=== PATIENT | female | born 1995 | race Caucasian/White ===

== ENCOUNTER 2023-03-05 12:30 | Outpatient (OUT) | payer BC, SELFPAY ==
--- NOTE | 2023-03-05 12:36 | US_ITS ---
The [address] [address] Patient Name: ISIDRA QUINTANA MRN: [id number] date: 1995 Sex: F Assigned Patient Location: US Current Patient Location: US Accession/Order Number: [id number] Exam Date: 03/05/2023 12:30 Report Date: 03/05/2023 13:51 At the request of: HUONG MENDOZA Procedure: US OB transvaginal TRANSVAGINAL FIRST TRIMESTER OB ULTRASOUND HISTORY: ; size and dates. COMPARISON: None. FINDINGS: There is a single intrauterine with a yolk sac and fetus visualized. The crown-rump length measures 2.61 cm. There are heart tones 166 bpm. The right ovary measures 3.9 x 2.1 x 2.2 cm. The left ovary measures 2.6 x 1.4 x 3.0 cm. There is no free fluid seen within the cul-de-sac. The cervix measures 4.8 cm. IMPRESSION: Single viable intrauterine with an estimated sonographic age of 9 weeks 3 days. Electronically authenticated by: LEAH MANN Date: 03/05/2023 13:51
== END 2023-03-05 12:31 ==
LOC: US 12:32
PROVIDERS: PCP Obstetrics & Gynecology; Visit Provider Obstetrics & Gynecology
DX: Z34.91 Encounter for supervision of normal pregnancy, unspecified, first trimester (principal); Z3A.09 9 weeks gestation of pregnancy
CPT/HCPCS: 76817

== ENCOUNTER 2023-03-30 20:20 | Outpatient (REF) | payer BC, SELFPAY ==
[2023-04-02 16:09] LABS: Age Gdln ACOG Testing Note (.); IGP, rfx Aptima HPV ASCU Note (.)
== END 2023-03-30 20:21 | disposition home or self-care (01) ==
LOC: LAB 20:20
PROVIDERS: PCP Obstetrics & Gynecology; Visit Provider Obstetrics & Gynecology
DX: Z01.419 Encounter for gynecological examination (general) (routine) without abnormal findings (principal)
CPT/HCPCS: G0145

== ENCOUNTER 2023-04-01 16:03 | Outpatient (OUT) | payer BC, SELFPAY ==
[2023-04-01 16:37] LABS: Basophils Percent Auto 0.3 % (0.2-2.0); Eosinophils Absolute Auto 0.1 10^3/uL (0.0-0.7); Eosinophils Percent Auto 0.5 % (0.9-7.0); Hematocrit 36.8 % (36.0-48.0); Hemoglobin 12.6 g/dL (12.0-16.0); Immature Granulocytes Abs Auto 0.04 10^3/uL (0.00-0.03); Immature Granulocytes Pct Auto 0.3 % (0.0-0.5); Lymphocytes Absolute Auto 2.4 10^3/uL (1.2-3.8); Lymphocytes Percent Auto 20.4 % (20.5-60.0); Mean Corpuscular HGB Conc 34.2 g/dL (29.9-35.2); Mean Corpuscular Hemoglobin 30.1 pg (26.7-34.0); Mean Corpuscular Volume 87.8 fL (81.0-99.0); Mean Platelet Volume 10.6 fL (9.5-13.5); Monocytes Absolute Auto 1.1 10^3/uL (0.3-0.8); Monocytes Percent Auto 9.1 % (1.7-12.0); Neutrophils Absolute Auto 8.2 10^3/uL (1.4-6.5); Neutrophils Percent Auto 69.4 % (43.0-75.0); Platelet Count 210 10^3/uL (150-450); Red Blood Count 4.19 10^6/uL (4.20-5.40); Red Cell Distribution Width 12.4 % (11.0-15.0); White Blood Count 11.9 10^3/uL (4.0-11.0)
[2023-04-01 17:04] LABS: Estimated Average Glucose 105 mg/dL; Glycohemoglobin A1C 5.3 % (4.5-6.2)
[2023-04-01 17:18] LABS: Thyroid Stimulating Hormone 1.853 uIU/mL (0.358-3.740)
[2023-04-03 05:07] LABS: HCV Ab Non Reactive (Non Reactive); HIV Ab/p24 Ag Screen Non Reactive (Non Reactive); Rubella Antibodies, IgG 1.22 index (Immune >0.99)
[2023-04-03 06:09] LABS: HBsAg Screen Negative (Negative)
[2023-04-03 11:09] LABS: Rapid Plasma Reagin, Quant Non Reactive (NonRea<1:1)
== END 2023-04-01 16:04 | disposition home or self-care (01) ==
PROVIDERS: PCP Obstetrics & Gynecology; Visit Provider Obstetrics & Gynecology
DX: N91.2 Amenorrhea, unspecified (principal)
CPT/HCPCS: 36415; 83036; 84443; 85025; 86592; 86762; 86803; 86850; 86900; 86901; 87086; 87340; 87389

== ENCOUNTER 2023-05-21 16:50 | Outpatient (OUT) | payer BC, SELFPAY ==
--- NOTE | 2023-05-21 16:54 | US_ITS ---
[address] [address] Patient Name: ISIDRA QUINTANA MRN: [id number] date: 1995 Sex: F Assigned Patient Location: US Current Patient Location: Accession/Order Number: [id number] Exam Date: 05/21/2023 17:05 Report Date: 05/22/2023 07:19 At the request of: MELY PAYTON Procedure: US OB anatomy EXAMINATION: US OB anatomy, US OB cervical length HISTORY: Second trimester Z34.92 COMPARISON: No relevant comparison available. TECHNIQUE: Transabdominal sonographic examination was performed for obstetrical and evaluation. FINDINGS: Number: 1 Heart Rate: 148.4 bpm H.B. /min Amniotic Fluid Volume: Subjectively normal Placental Location: Posterior, grade 0. Placental edge 2.4 cm from the internal os position: Cephalic presentation, variable lie Cervix Length: 5.7 cm, closed Normal anatomy: Nose, lips, orbits, four-chamber heart, diaphragm, stomach, kidneys, abdominal cord insertion, bladder, umbilical cord arteries, three-vessel cord, spine, extremities Suboptimal visualization: Lateral ventricles, cerebellum, posterior fossa, RVOT, LVOT BIOMETRY: BPD: 4.9 cm 21 weeks 0 days , 81% HC: 18.3 cm 20 weeks 5 days, 69% AC: 15.2 cm 20 weeks 3 days, 54% FL: 3.1 cm 19 weeks 5 days, 27% EFW:338.2 grams; 12 ounces, 48% FL/AC: 20.6 FL/BPD: 63.4 HC/AC: 1.2 GESTATIONAL AGE: Age by EDC: 20 weeks 1 days GAMAL by EDC: 10/07/2023 Age by current US: 20 weeks 3 days GAMAL by current US: 10/05/2023 US/US OB anatomy IMPRESSION: Suboptimal visualization as detailed above Low lying placenta Closed cervix measuring 5.7 cm in length *Reference: [facility] Practice Guideline for the performance of Obstetric Ultrasound Examinations, July 05, 2007. Electronically authenticated by: JONATHAN GEIGER Date: 05/22/2023 07:19
--- NOTE | 2023-05-21 16:54 | US_ITS ---
[address] [address] Patient Name: ISIDRA QUINTANA MRN: [id number] date: 1995 Sex: F Assigned Patient Location: US Current Patient Location: Accession/Order Number: [id number] Exam Date: 05/21/2023 17:05 Report Date: 05/22/2023 07:19 At the request of: MELY PAYTON Procedure: US OB cervical length EXAMINATION: US OB anatomy, US OB cervical length HISTORY: Second trimester Z34.92 COMPARISON: No relevant comparison available. TECHNIQUE: Transabdominal sonographic examination was performed for obstetrical and evaluation. FINDINGS: Number: 1 Heart Rate: 148.4 bpm H.B. /min Amniotic Fluid Volume: Subjectively normal Placental Location: Posterior, grade 0. Placental edge 2.4 cm from the internal os position: Cephalic presentation, variable lie Cervix Length: 5.7 cm, closed Normal anatomy: Nose, lips, orbits, four-chamber heart, diaphragm, stomach, kidneys, abdominal cord insertion, bladder, umbilical cord arteries, three-vessel cord, spine, extremities Suboptimal visualization: Lateral ventricles, cerebellum, posterior fossa, RVOT, LVOT BIOMETRY: BPD: 4.9 cm 21 weeks 0 days , 81% HC: 18.3 cm 20 weeks 5 days, 69% AC: 15.2 cm 20 weeks 3 days, 54% FL: 3.1 cm 19 weeks 5 days, 27% EFW:338.2 grams; 12 ounces, 48% FL/AC: 20.6 FL/BPD: 63.4 HC/AC: 1.2 GESTATIONAL AGE: Age by EDC: 20 weeks 1 days GAMAL by EDC: 10/07/2023 Age by current US: 20 weeks 3 days GAMAL by current US: 10/05/2023 US/US OB cervical length IMPRESSION: Suboptimal visualization as detailed above Low lying placenta Closed cervix measuring 5.7 cm in length *Reference: [facility] Practice Guideline for the performance of Obstetric Ultrasound Examinations, July 05, 2007. Electronically authenticated by: JONATHAN GEIGER Date: 05/22/2023 07:19
== END 2023-05-21 16:51 | disposition home or self-care (01) ==
LOC: US 16:50
PROVIDERS: PCP Obstetrics & Gynecology; Visit Provider Physician Assistant
DX: O44.42 Low lying placenta NOS or without hemorrhage, second trimester (principal); Z3A.20 20 weeks gestation of pregnancy
CPT/HCPCS: 76805; 76817

== ENCOUNTER 2023-07-04 09:15 | Outpatient (OUT) | payer BC, MEDICAID, SELFPAY ==
--- NOTE | 2023-07-04 | US_ITS ---
[address] [address] Patient Name: ISIDRA QUINTANA MRN: [id number] date: 1995 Sex: F Assigned Patient Location: US Current Patient Location: Accession/Order Number: [id number] Exam Date: 07/04/2023 10:08 Report Date: 07/06/2023 08:52 At the request of: MELY PAYTON Procedure: US OB cervical length EXAMINATION: US OB incomplete anatomy, US OB cervical length HISTORY: ENCOUNTER FOR FOLLOW UP OF ANATOMY Z36.2 COMPARISON: No relevant comparison available. FINDINGS: Heart Rate: 148.4 bpm Amniotic Fluid Volume: Subjectively normal Number: 1.0 Position: Cephalic presentation, longitudinal lie Placenta: Posterior. Placental edge 4.3 cm from the internal os. Grade 0 Cervix: Closed, 4.6 cm Normally observed anatomy: Cerebellum, posterior fossa, RVOT, LVOT, lateral ventricles GESTATIONAL AGE: Age by EDC: 26 weeks 3 days GAMAL by EDC: 10/07/2023 US/US OB cervical length IMPRESSION: Closed cervix measuring 4.6 cm in length Observed anatomy is normal Electronically authenticated by: JONATHAN GEIGER Date: 07/06/2023 08:52
--- NOTE | 2023-07-04 | US_ITS ---
[address] [address] Patient Name: ISIDRA QUINTANA MRN: [id number] date: 1995 Sex: F Assigned Patient Location: US Current Patient Location: Accession/Order Number: [id number] Exam Date: 07/04/2023 10:08 Report Date: 07/06/2023 08:52 At the request of: MELY PAYTON Procedure: US OB incomplete anatomy EXAMINATION: US OB incomplete anatomy, US OB cervical length HISTORY: ENCOUNTER FOR FOLLOW UP OF ANATOMY Z36.2 COMPARISON: No relevant comparison available. FINDINGS: Heart Rate: 148.4 bpm Amniotic Fluid Volume: Subjectively normal Number: 1.0 Position: Cephalic presentation, longitudinal lie Placenta: Posterior. Placental edge 4.3 cm from the internal os. Grade 0 Cervix: Closed, 4.6 cm Normally observed anatomy: Cerebellum, posterior fossa, RVOT, LVOT, lateral ventricles GESTATIONAL AGE: Age by EDC: 26 weeks 3 days GAMAL by EDC: 10/07/2023 US/US OB incomplete anatomy IMPRESSION: Closed cervix measuring 4.6 cm in length Observed anatomy is normal Electronically authenticated by: JONATHAN GEIGER Date: 07/06/2023 08:52
[2023-07-04 10:13] LABS: Glucose 1 Hour 128 mg/dL
[2023-07-04 10:44] LABS: Basophils Absolute Auto 0.1 10^3/uL (0.0-0.1); Basophils Percent Auto 0.5 % (0.2-2.0); Eosinophils Absolute Auto 0.1 10^3/uL (0.0-0.7); Eosinophils Percent Auto 0.6 % (0.9-7.0); Hematocrit 35.8 % (36.0-48.0); Hemoglobin 11.8 g/dL (12.0-16.0); Immature Granulocytes Abs Auto 0.09 10^3/uL (0.00-0.03); Immature Granulocytes Pct Auto 0.7 % (0.0-0.5); Lymphocytes Absolute Auto 2.2 10^3/uL (1.2-3.8); Lymphocytes Percent Auto 17.6 % (20.5-60.0); Mean Corpuscular Hemoglobin 30.5 pg (26.7-34.0); Mean Corpuscular Volume 92.5 fL (81.0-99.0); Mean Platelet Volume 10.6 fL (9.5-13.5); Monocytes Percent Auto 8.1 % (1.7-12.0); Neutrophils Absolute Auto 8.9 10^3/uL (1.4-6.5); Neutrophils Percent Auto 72.5 % (43.0-75.0); Platelet Count 213 10^3/uL (150-450); Red Blood Count 3.87 10^6/uL (4.20-5.40); Red Cell Distribution Width 12.8 % (11.0-15.0); White Blood Count 12.3 10^3/uL (4.0-11.0)
== END 2023-07-04 09:16 | disposition home or self-care (01) ==
LOC: US 09:23
PROVIDERS: Visit Provider Physician Assistant
DX: Z36.2 Encounter for other antenatal screening follow-up (principal); Z34.92 Encounter for supervision of normal pregnancy, unspecified, second trimester; Z3A.26 26 weeks gestation of pregnancy
CPT/HCPCS: 36415; 76815; 76817; 82950; 85025

== ENCOUNTER 2023-09-10 19:26 | Outpatient (REF) | payer BC, SELFPAY | END 2023-09-10 19:27 | disposition home or self-care (01) | LOC: LAB 19:26 | PROVIDERS: Visit Provider Obstetrics & Gynecology | DX: Z34.93 Encounter for supervision of normal pregnancy, unspecified, third trimester (principal) | CPT/HCPCS: 87081 ==

== ENCOUNTER 2023-09-29 14:21 | Inpatient (IN) | payer BC, MEDICAID, SELFPAY ==
[2023-09-29] VITALS (33 sets, daily range): BP systolic 86–125; BP diastolic 54–91; PULSE 81–100; RESP 10–21; TEMP 36.2–36.8; O2SAT 97–100
[2023-09-29 15:33] LABS: Hematocrit 36.6 % (36.0-48.0); Hemoglobin 11.8 g/dL (12.0-16.0); Mean Corpuscular HGB Conc 32.2 g/dL (29.9-35.2); Mean Corpuscular Hemoglobin 28.2 pg (26.7-34.0); Mean Corpuscular Volume 87.4 fL (81.0-99.0); Mean Platelet Volume 10.9 fL (9.5-13.5); Platelet Count 222 10^3/uL (150-450); Red Blood Count 4.19 10^6/uL (4.20-5.40); Red Cell Distribution Width 14.2 % (11.0-15.0); White Blood Count 16.9 10^3/uL (4.0-11.0)
[2023-09-29 15:36] LABS: Bilirubin Urine NEGATIVE (NEGATIVE); Blood Urine NEGATIVE (NEGATIVE); Clarity Urine CLEAR (CLEAR); Color Urine LT. YELLOW (YELLOW); Glucose Urine UA NEGATIVE (NEGATIVE); Ketones Urine NEGATIVE (NEGATIVE); Leukocyte Esterase Urine NEGATIVE (NEGATIVE); Nitrite Urine NEGATIVE (NEGATIVE); Protein Urine NEGATIVE (NEG/TRACE); Specific Gravity Urine 1.015 (1.005-1.025); Urobilinogen Urine 0.2 EU/dL (0.2-1.0)
[2023-09-29] MEDS: 0.9 % SODIUM CHLORIDE 1,000 ML 1000 ML IV ×2 (15:43→16:44)
[2023-09-29 15:45] LABS: Amphetamine Screen Urine NEGATIVE (NEGATIVE); Bacteria Urine NONE SEEN #/HPF (NONE SEEN); Barbiturates Screen Urine NEGATIVE (NEGATIVE); Benzodiazepines Screen Urine NEGATIVE (NEGATIVE); Buprenorphine Screen Urine NEGATIVE (NEGATIVE); Cannabinoid Screen Urine NEGATIVE (NEGATIVE); Cocaine Screen Urine NEGATIVE (NEGATIVE); Crystals Seen? None Seen #/HPF (None Seen); Methadone Screen Urine NEGATIVE (NEGATIVE); Methamphetamines Screen Urine NEGATIVE (NEGATIVE); Mucus Urine SMALL (NONE SEEN); Opiate Screen Urine NEGATIVE (NEGATIVE); Oxycodone Screen Urine NEGATIVE (NEGATIVE); Phencyclidine Screen Urine NEGATIVE (NEGATIVE); RBC Urine NONE SEEN #/HPF (0-2); Squamous Epithelial Cell Urine FEW #/LPF (NONE/RARE); Tricyclic Antidepressant Urine NEGATIVE (NEGATIVE); WBC Urine NONE SEEN #/HPF (NONE SEEN)
[2023-09-29 15:46] LABS: Cast Seen? NONE SEEN #/LPF (NONE SEEN)
[2023-09-29 15:53] LABS: Anisocytosis 1+; Segmented Neut Absolute Manual 10.98 10^3/uL (1.4-6.5)
[2023-09-29 15:54] LABS: Eosinophils Absolute Manual 0.33 10^3/uL (0.00-0.70); Lymphocytes Absolute Manual 3.04 10^3/uL (1.20-3.80); Monocytes Absolute Manual 2.53 10^3/uL (0.30-0.80)
[2023-09-29] MEDS: FAMOTIDINE/PF 20 MG/2 ML VIAL IV (16:08)
[2023-09-29] MEDS: CITRIC ACID/SODIUM CITRATE 30 ML SOLUTION ORACIT SHOHL'S SOLN PO (16:08)
[2023-09-29] MEDS: CEFAZOLIN SODIUM/DEXTROSE,ISO 2 GM/50 ML PIGGYBACK IV ×2 (16:22→22:28)
--- NOTE | 2023-09-29 16:56 | P.ON_ITS ---
Brief Operative Note Date of procedure: 09/29/23 Pre-op diagnosis: iup at 38 6/7wks, breech presentation, active labor, srom Post-op diagnosis: same as pre-op Procedure: NAME OF PROCEDURE: [ section ] PROCEDURE: Patient was taken back to the Operating Room where she was given a spinal anesthesia with Duramorph without difficulty. She was prepped and draped in the normal sterile fashion. A Pfannenstiel skin incision was then made 2 cm above the symphysis pubis and carried down to underlying rectus fascia using a Bovie. The fascia was incised in the midline and extended laterally using Kenney scissors. Two Jerilyn clamps were placed on the superior aspect of the fascia and dissected off the underlying rectus muscles. The same was performed on the inferior aspect as well. The muscles were then in the midline. P eritoneum was identified and entered bluntly. The peritoneum was then extended superiorly and inferiorly with good visualization of the bladder. The bladder blade was inserted. A low transverse incision was made on the patient's uterus and extended laterally digitally. The infant was then delivered atraumatically after the bladder blade was removed in the breech position. The cord was clamped and cut. Cord blood was obtained. The infant was handed off to awaiting team. The patient's placenta was spontaneously delivered. The uterus was then exteriorized. The uterus was cleared of all clots and debris. The bladder blade was reinserted. The patient's uterine incision was closed using #0 Vicryl in a running lock fashion. Excellent hemostasis was assured. The uterus was then returned to the patient's abdomen. The patient's abdomen was copiously irrigated using warm saline. Peritoneal gutters were cleared of all clots and debris. Again excellent hemostasis was assured. The patient's peritoneum was closed using 3-0 Vicryl in a running fashion. The patient's fascia was closed using #0 Vicryl in a running fashion. The patient's skin was closed using 4-0 Vicryl subcuticularly. The patient tolerated the procedure well. Sponge, lap, and needle counts were correct x2. The patient was taken to the Recovery Room in stable condition. Anesthesia: spinal Surgeon: Yair Vega Manufacturing Weaver: Lulu Nelson Estimated blood loss (mL): 575 Pathology: other (placenta) Condition: stable Disposition: PACU Urinary Catheter Management Urinary Catheter Management Urethral: Cath placed during this visit: no
--- NOTE | 2023-09-29 16:58 | PM.OBPRCCS ---
Procedure Pre-op/Post-op diagnoses: Pre-Op/Post-Op Diagnoses Operation Date: 09/29/23 16:00 <No data on this case meets the specified criteria> Procedure: Procedures Operation Date: 09/29/23 16:00 Actual Procedure Side Surgeon p Primary Not Applicable Yair Vega DO Cotton Farmer: Lulu Nelson Estimated blood loss (mL): 575 Disposition: PACU Anesthesia type: Spinal
[2023-09-29] MEDS: LACTATED RINGER'S SOLUTION 1,000 ML 50 ML IV (17:05)
[2023-09-29] MEDS: OXYTOCIN/0.9 % SODIUM CHLORIDE 20 UNITS/1,000 ML PLAST..BAG 200 UNIT IV (18:23)
[2023-09-29] MEDS: KETOROLAC TROMETHAMINE 30 MG/ML VIAL IVP (22:33)
[2023-09-29] MEDS: ONDANSETRON PF 4 MG/2 ML VIAL IV (22:48)
[2023-09-30 00:06] VITALS: BP 113/73
[2023-09-30] MEDS: KETOROLAC TROMETHAMINE 30 MG/ML VIAL IVP ×2 (04:51→11:42)
[2023-09-30 05:01] VITALS: BP 117/66; TEMP 36.4
[2023-09-30 06:33] LABS: Basophils Absolute Auto 0.1 10^3/uL (0.0-0.1); Basophils Percent Auto 0.3 % (0.2-2.0); Hematocrit 28.9 % (36.0-48.0); Hemoglobin 9.1 g/dL (12.0-16.0); Immature Granulocytes Abs Auto 0.16 10^3/uL (0.00-0.03); Immature Granulocytes Pct Auto 0.7 % (0.0-0.5); Lymphocytes Absolute Auto 2.5 10^3/uL (1.2-3.8); Lymphocytes Percent Auto 10.9 % (20.5-60.0); Mean Corpuscular HGB Conc 31.5 g/dL (29.9-35.2); Mean Corpuscular Hemoglobin 28.1 pg (26.7-34.0); Mean Corpuscular Volume 89.2 fL (81.0-99.0); Neutrophils Absolute Auto 17.4 10^3/uL (1.4-6.5); Neutrophils Percent Auto 75.1 % (43.0-75.0); Platelet Count 176 10^3/uL (150-450); Red Blood Count 3.24 10^6/uL (4.20-5.40); Red Cell Distribution Width 14.2 % (11.0-15.0); White Blood Count 23.2 10^3/uL (4.0-11.0)
--- NOTE | 2023-09-30 07:41 | W.PC.ACHO ---
Registration Status: ADM IN Primary Language: Belizean Preferred Language: Belizean Active Medications Generic Name Dose Route Start Last Admin Trade Name Freq PRN Reason Stop Dose Admin Al Hydroxide/Mg Hydroxide 2,400 mg 09/29/23 16:58 Magnesium Hydroxide 2,400 Mg/10 Ml Oral.Susp PO Q6H PRN Dyspepsia Diphenhydramine HCl 25 mg 09/29/23 16:58 Diphenhydramine Hcl 50 Mg/Ml (1ml) Vial IV 09/30/23 17:00 Q6H PRN Itching Diphtheria/Pertussis/Tetanus Vacc 0.5 ml 10/01/23 09:00 Adacel Diph,Pertuss(Acell),Tet Vac/Pf 0.5 Ml Adult Syringe IM 10/01/23 09:01 .ONCE ONE Docusate Sodium 100 mg 09/30/23 09:00 Docusate Sodium 100 Mg Capsule PO BID STEPHANY Sodium Chloride 1,000 mls @ 125 mls/hr 09/29/23 18:00 Sodium Chloride 0.9% 1,000 Ml IV .Q8H STEPHANY Ibuprofen 800 mg 09/29/23 16:58 Ibuprofen 400 Mg Tablet PO Q8H PRN Pain Ketorolac Tromethamine 30 mg 09/29/23 16:58 09/30/23 04:51 Ketorolac Tromethamine 30 Mg/Ml Vial IVP 10/01/23 16:59 30 mg Q6H PRN Administration Pain Measles/Mumps/Rubella Vaccine Live 0.5 ml 10/01/23 09:00 Measles,Mumps,Rubella Vacc/Pf 0.5 Ml Vial SQ 10/01/23 09:01 .ONCE ONE Ondansetron HCl 4 mg 09/29/23 16:58 09/29/23 22:48 Ondansetron Pf 4 Mg/2 Ml Vial IV 4 mg Q6H PRN Administration Nausea And Vomiting Ondansetron HCl 4 mg 09/29/23 16:58 Ondansetron 4 Mg Rapdis Tablet PO Q6H PRN Nausea And Vomiting Oxycodone/Acetaminophen 1 tab 09/29/23 16:58 Oxycodone Hcl/Acetaminophen 5mg/325mg PO Q4H PRN Pain Scale 4-6 Oxycodone/Acetaminophen 2 tab 09/29/23 16:58 Oxycodone Hcl/Acetaminophen 5mg/325mg PO Q4H PRN Pain Scale 7-10 Senna 17.2 mg 09/29/23 20:00 Sennosides 8.6 Mg Tablet PO QHS PRN Constipation Simethicone 80 mg 09/29/23 16:58 Simethicone 80 Mg Tab.Chew PO QID PRN Abdominal Distention Diet Category Date Time Status Regular Consistency Diet Diet 09/29/23 16:59 Active IV Insertion/Site Date of IV Line Insertion [ 09/29/23 Long PIV (>1.75 in) 20g left Wrist] IV Insertion Time [Long PIV (> 15:44 1.75 in) 20g left Wrist] Respiratory Lung sounds [Bilateral clear Throughout] Lung sounds [Bilateral clear Throughout] Lung sounds [Bilateral clear Throughout] Pulse Oximetry 97 Pulse Oximetry 97 Pulse Oximetry 97 Pulse Oximetry 97 Pulse Oximetry 99 Pulse Oximetry 98 Pulse Oximetry 97 Pulse Oximetry 99 Pulse Oximetry 98 Pulse Oximetry 98 Pulse Oximetry 100 Pulse Oximetry 100 Pulse Oximetry 99 Pulse Oximetry 100 Pulse Oximetry 100 Pulse Oximetry 100 Pulse Oximetry 100 Pulse Oximetry 100 Pulse Oximetry 100 Pulse Oximetry 100 Pulse Oximetry 100 Pulse Oximetry 100 Pulse Oximetry 100 Pulse Oximetry 100 Oxygen Delivery Method Room Air Oxygen Delivery Method Room Air Oxygen Delivery Method Room Air Oxygen Delivery Method Room Air Oxygen Delivery Method Room Air Oxygen Delivery Method Room Air Oxygen Delivery Method Room Air Oxygen Delivery Method Room Air Oxygen Delivery Method Room Air Cardiology Heart Sounds Regular Heart Sounds Regular Heart Sounds Regular Heart Sounds Regular Catheter Urinary Catheter Date of 09/29/23 Insertion [Urethral] Urinary Catheter Time of 15:30 Insertion [Urethral]
[2023-09-30 08:07] VITALS: PULSE 72
[2023-09-30 09:05] VITALS: BP 100/52; PULSE 72; TEMP 36.8
--- NOTE | 2023-09-30 09:06 | PM.OBPN ---
OB - PN: Subj Subjective Patient comments: no complaints and pain well controlled [place] status: doing well Exam Constitutional Vital Signs, click to edit/add: Last Vital Signs Temp 97.6 F 09/30/23 05:01 Pulse 82 09/29/23 18:20 Resp 13 09/29/23 18:45 BP 117/66 09/30/23 05:01 Pulse Ox 97 09/29/23 18:45 O2 Del Method Room Air 09/30/23 00:03 Documenting provider has reviewed patient's vital signs: yes Common normals: no apparent distress Respiratory Common normals: normal respiratory effort and clear to auscultation bilaterally Cardio Common normals: regular rate and regular rhythm GI Common normals: Normal to inspection, nondistended, normoactive bowel sounds present Extremity Common normals: no clubbing, cyanosis or edema and no calf tenderness Results Labs Labs: Short CBC 09/29/23 09/30/23 Range/Units 15:18 06:24 WBC 16.9 H 23.2 H (4.0-11.0) 10^3/uL Hgb 11.8 L 9.1 L (12.0-16.0) g/dL Hct 36.6 28.9 L (36.0-48.0) % Plt Count 222 176 (150-450) 10^3/uL Urine 09/29/23 Range/Units 15:18 Urine Color Lt. yellow (YELLOW) Urine Clarity Clear (CLEAR) Urine pH 6.0 (5.0-9.0) Ur Specific [place] 1.015 (1.005-1.025) Urine Protein Negative (NEG/TRACE) mg/dL Urine Glucose (UA) Negative (NEGATIVE) mg/dL Urinary Catheter Management Urinary Catheter Management Urethral: Cath placed during this visit: yes Urethral indwelling: No Insertion date: 09/29/23 Insertion time: 15:30 OB - PN: A/P Plan - day: 1 Plan: routine postop care Time Spent with Patient Time: Total time spent is greater than 50% in coordination of care (as documented) at patient's floor/unit and/or counseling patient: Total time spent with greater than 50% in coordination of care (as documented) at patient's floor/unit and/or counseling patient: less than 15 minutes
[2023-09-30] MEDS: DOCUSATE SODIUM 100 MG CAPSULE PO (11:44)
--- NOTE | 2023-09-30 14:54 | PC.NURSE ---
1300 assisted up to bathroom, Liang catheter removed.
--- NOTE | 2023-09-30 15:48 | PC.NURSE ---
LC into room as infant signals to eat. Discussed possible tongue tie for and impact on /latching. Also discussed simple reflexes that are important for feeding including backwards expression of labyrinthian reflex. Shown how to hold infant to stimulate reflex. Tongue tie noted, brief digital assessment shows infant unable to extend tongue to lip, minimal ability to move tongue laterally. Infant had tight bite/clamp of jaw when stimulated to suck. Mother shown simple exercises to assist in jaw relaxation and tongue extension. Shown to use cheek sweeps, mandibular massage, gum massage for lateralization and walk the chin. Baby positioned well by mom, minimal assistance needed to latch deep and asymmetrical. Wide gape noted with audible swallows noted. Baby successfully maintains latch for feed. All reviewed info with mom and voices understanding.
[2023-09-30 17:01] VITALS: RESP 18
[2023-09-30 17:17] VITALS: BP 110/65; TEMP 36.7
[2023-09-30] MEDS: IBUPROFEN 400 MG TABLET 800 MG PO (17:37)
--- NOTE | 2023-09-30 19:08 | PC.NURSE ---
1830 Patient up to shower, dressing removed . Abdominal incision KNOWLEDGE MANAGER with Steri Strips intact.
[2023-10-01] VITALS (10 sets, daily range): BP systolic 88–142; BP diastolic 48–75; PULSE 99–109; RESP 16–20; TEMP 37–37.6
[2023-10-01] MEDS: IBUPROFEN 400 MG TABLET 800 MG PO ×3 (01:09→19:49)
[2023-10-01] MEDS: ACETAMINOPHEN 500 MG TABLET 1000 MG PO ×2 (04:37→14:41)
[2023-10-01] MEDS: DOCUSATE SODIUM 100 MG CAPSULE PO (09:30)
--- NOTE | 2023-10-01 12:13 | PM.OBPN ---
OB - PN: Subj Subjective Patient comments: other status: doing well [place] feeding status: exclusively Narrative: PATIENT DOES NOT FEEL WELL. SHE HAS A TEMPERATURE AND THE FOB AND DAUGHTER HAVE HAD COLDS. SHE WAS TEARFUL BECAUSE SHE DOES NOT FEEL WELL. ALSO, SHE IS TRYING TO BREAST FEED WHICH IS REQUIRING SUPPORT FROM THE BIODIESEL PROCESSING TECHNICIAN WHICH IS MAKING HER TEARFUL. Exam Narrative Exam Narrative: PATIENT NOT FEELING WELL. HAS A LOW GRADE TEMP. FOB AND DAUGHTER HAVE BEEN SICK. HISTORY OF ANXIETY AND DEPRESSION. PRESENTLY TEARFUL BECAUSE EXHAUSTED AND NOT FEELING WELL Constitutional Vital Signs, click to edit/add: Last Vital Signs Temp 99.3 F 10/01/23 04:37 Pulse 72 09/30/23 09:05 Resp 16 10/01/23 00:51 BP 96/48 L 10/01/23 03:25 Pulse Ox 97 09/29/23 18:45 O2 Del Method Room Air 09/30/23 00:03 Common normals: oriented x3 and alert General appearance: cooperative Orientation/consciousness: Yes awake, Yes oriented to person, Yes oriented to place and Yes oriented to time Other: EMOTIONALLY OVERWHELMED THOUGH BONDING WELL WITH BABY. HAS HISTORY OF ANXIETY AND DEPRESSION. WILL BE STARTING ZOLOFT 50 MG QHS HENMT Common normals: normocephalic and head/scalp atraumatic Eye Pupil: PERRL and accommodation reflex normal Neck & C-Spine Common normals: full ROM Chest Common normals: inspection of chest normal Respiratory Common normals: normal respiratory effort Cardio Common normals: regular rate and regular rhythm GI Common normals: Normal to inspection, nondistended, normoactive bowel sounds present and non-tender Common normals: no CVA tenderness Extremity Common normals: full ROM and no calf tenderness Neuro Common normals: oriented x3, CN's II-XII intact bilaterally, no focal motor deficits and no sensory deficits noted Sensorium/orientation: awake, alert, oriented to person, oriented to place and oriented to time Psych Common normals: mental status grossly normal, thought process normal, cooperative and affect normal Appearance: grossly normal Urinary Catheter Management Urinary Catheter Management Urethral: Cath placed during this visit: yes Urethral indwelling: No Insertion date: 09/29/23 Insertion time: 15:30 OB - PN: A/P Assessment and Plan (1) Fever: Assessment and Plan: FOB AND CHILD HAVE BEEN SICK. PATIENT HAS ELEVATED WBC AND LOW GRADE FEVER. NO NAUSEA OR VOMITING. NO HEADACHE. WILL DRAW BLOOD CULTURES AND THEN START UNASYN 3 GRAM IV Q 6 HOURS AND RECHECK WBC TOMORROW AM Qualifiers: Fever type: fever of unknown origin following delivery Qualified Code(s): O86.4 - Pyrexia of unknown origin following delivery (2) Anxiety: Assessment and Plan: HAS HISTORY OF ANXIETY AND DEPRESSION. DOESN'T FEEL WELL WITH FEVER AND FOB STRUGGLING WITH WORK TO GET PATERNITY LEAVE. PRESENTLY IS TEARFUL HOWEVER BONDING WELL WITH BABY AND NO THOUGHTS OF HURTING SELF OR BABY. WILL START ZOLOFT 50 MG QHS AND INCREASE AT TWO WEEKS IF NEEDED. (3) Status post : Plan INCISION DRY AND INTACT, ROUTINE POST OP POST CARE Time Spent with Patient Time: Total time spent is greater than 50% in coordination of care (as documented) at patient's floor/unit and/or counseling patient: Total time spent with greater than 50% in coordination of care (as documented) at patient's floor/unit and/or counseling patient: less than 15 minutes
[2023-10-01] MEDS: AMPICILLIN SODIUM/SULBACTAM NA 3 GM in 0.9 % SODIUM CHLORIDE 100 ML IV ×2 (14:00→19:48)
--- NOTE | 2023-10-01 14:05 | PC.NURSE ---
1150 AM 09/21/2023. LC into room to check on feeding status and how latching has been due to tongue tie in baby and pinching during feeds. Mom states better than yesterday still reprots pain with feeds and half the time my nipple is flat on one side when he comes off Discussed tongue tie and shallow latch. Pt had previously asked about discharge but then states I don't feel good today I want to go home to my bed, I have a temperature, I am coughing and just don't feel good LC offers cool cloth to face, and feeding options could wait. Floor nurses updated on pt complaints at this time. Dr Browning on her way in. Pt states would like to get to chair to feed baby. Discussed pro's and con's of use of nipple shield for tongue tie and sore nipples Pt would like to try. Hand out for use reviewed, assisted to place with pt verbalizing understanding of proper placement and baby to breast. NB does not suck well, stops altogether. Shield removed and to breast with deep latch and audible swallows. Nipple rounded when off, nursed for 19 minutes. Mom encouraged with feeding. Later states I would like to give him a bit of formula because I feel so awful Supported and validated. Pt to offer small amount of formula via syringe as needs. No further concerns voiced.
--- NOTE | 2023-10-01 16:03 | PC.NURSE ---
1325: LAB AT BEDSIDE FOR BLOOD CULTURES X 2. 1400: IV STARTED IN LEFT AC WITH # 20 ANGIOCATH FOR IVPB UNASYN.
--- NOTE | 2023-10-01 16:05 | PC.NURSE ---
1430: TYLENOL XS GIVEN 1000 MG PO. 1445: C/O CHILLS- WARM BLANKET GIVEN- SKIN WARM TO TOUCH- TEMP TAKEN. 1500: SLEEPING AND NO SHAKING NOTED. 1530: REMAINS ASLEEP WITH EASY RESPIRATIONS.
[2023-10-01] MEDS: SERTRALINE HCL 50 MG TABLET PO (22:21)
[2023-10-02 00:20] VITALS: BP 117/66
[2023-10-02 00:21] VITALS: RESP 16; TEMP 36.9
[2023-10-02] MEDS: AMPICILLIN SODIUM/SULBACTAM NA 3 GM in 0.9 % SODIUM CHLORIDE 100 ML IV ×2 (02:40→09:46)
[2023-10-02] MEDS: IBUPROFEN 400 MG TABLET 800 MG PO ×2 (02:57→18:36)
[2023-10-02 03:00] VITALS: BP 107/59; TEMP 37.3
[2023-10-02 06:30] LABS: Hematocrit 30.3 % (36.0-48.0); Hemoglobin 9.6 g/dL (12.0-16.0); Mean Corpuscular HGB Conc 31.7 g/dL (29.9-35.2); Mean Corpuscular Hemoglobin 28.1 pg (26.7-34.0); Mean Corpuscular Volume 88.6 fL (81.0-99.0); Mean Platelet Volume 10.5 fL (9.5-13.5); Platelet Count 174 10^3/uL (150-450); Red Blood Count 3.42 10^6/uL (4.20-5.40); Red Cell Distribution Width 14.9 % (11.0-15.0); White Blood Count 12.3 10^3/uL (4.0-11.0)
[2023-10-02 06:44] LABS: Lymphocytes Absolute Manual 0.73 10^3/uL (1.20-3.80); Monocytes Absolute Manual 1.84 10^3/uL (0.30-0.80); Segmented Neut Absolute Manual 9.71 10^3/uL (1.4-6.5)
[2023-10-02 06:45] LABS: Anisocytosis 2+; Poikilocytosis 3+
--- NOTE | 2023-10-02 07:45 | W.PC.ACHO ---
Registration Status: ADM IN Primary Language: Uzbek Preferred Language: Uzbek Active Medications Generic Name Dose Route Start Last Admin Trade Name Freq PRN Reason Stop Dose Admin Acetaminophen 1,000 mg 10/01/23 04:06 10/01/23 14:41 Acetaminophen 500 Mg Tablet PO 1,000 mg Q6H PRN Administration Pain Al Hydroxide/Mg Hydroxide 2,400 mg 09/29/23 16:58 Magnesium Hydroxide 2,400 Mg/10 Ml Oral.Susp PO Q6H PRN Dyspepsia Docusate Sodium 100 mg 09/30/23 09:00 10/01/23 22:22 Docusate Sodium 100 Mg Capsule PO Not Given BID STEPHANY Sodium Chloride 1,000 mls @ 125 mls/hr 09/29/23 18:00 Sodium Chloride 0.9% 1,000 Ml IV .Q8H STEPHANY Ampicillin Sodium/Sulbactam 100 mls @ 200 mls/hr 10/01/23 13:00 10/02/23 03:15 Sodium 3 gm/ Sodium Chloride IV Infused Q6H STEPHANY Infusion Ibuprofen 800 mg 09/29/23 16:58 10/02/23 02:57 Ibuprofen 400 Mg Tablet PO 800 mg Q8H PRN Administration Pain Ondansetron HCl 4 mg 09/29/23 16:58 09/29/23 22:48 Ondansetron Pf 4 Mg/2 Ml Vial IV 4 mg Q6H PRN Administration Nausea And Vomiting Ondansetron HCl 4 mg 09/29/23 16:58 Ondansetron 4 Mg Rapdis Tablet PO Q6H PRN Nausea And Vomiting Oxycodone/Acetaminophen 1 tab 09/29/23 16:58 Oxycodone Hcl/Acetaminophen 5mg/325mg PO Q4H PRN Pain Scale 4-6 Oxycodone/Acetaminophen 2 tab 09/29/23 16:58 Oxycodone Hcl/Acetaminophen 5mg/325mg PO Q4H PRN Pain Scale 7-10 Senna 17.2 mg 09/29/23 20:00 Sennosides 8.6 Mg Tablet PO QHS PRN Constipation Sertraline HCl 50 mg 10/01/23 13:00 10/01/23 22:21 Sertraline Hcl 50 Mg Tablet PO 50 mg QD STEPHANY Administration Simethicone 80 mg 09/29/23 16:58 Simethicone 80 Mg Tab.Chew PO QID PRN Abdominal Distention IV Insertion/Site Date of IV Line Insertion [20g 10/01/23 left Antecubital] IV Insertion Time [20g left 14:00 Antecubital] Respiratory Oxygen Delivery Method Room Air Oxygen Delivery Method Room Air Oxygen Delivery Method Room Air Oxygen Delivery Method Room Air Oxygen Delivery Method Room Air Oxygen Delivery Method Room Air Cardiology Heart Sounds Strong,Regular Heart Sounds Strong,Regular Bowels Date of Last Bowel Movement 10/01/23 Renal Bladder Pattern Continent Bladder Pattern Continent Bladder Pattern Continent Catheter Urinary Catheter Date of 09/29/23 Insertion [Urethral] Urinary Catheter Time of 15:30 Insertion [Urethral]
[2023-10-02 09:43] VITALS: BP 109/62; PULSE 76; RESP 18; TEMP 36.9
[2023-10-02] MEDS: ACETAMINOPHEN 500 MG TABLET 1000 MG PO (12:21)
[2023-10-02] MEDS: DOCUSATE SODIUM 100 MG CAPSULE PO (18:36)
[2023-10-02] MEDS: SERTRALINE HCL 50 MG TABLET PO (18:36)
--- NOTE | 2023-10-22 | DS_ITS ---
DISCHARGE DATE: 10/22/2023 PRIMARY DIAGNOSES: 1. Intrauterine at 38 6/7 weeks. 2. Breech presentation. 3. Active labor. 4. Spontaneous rupture of membranes. PROCEDURE: section. HOSPITAL COURSE: As expected. Please see chart for full details. LABORATORY DATA: Please see chart. COMPLICATIONS: None. DISCHARGE CONDITION: Stable. CONSULTATION: Anesthesia. DISCHARGE INSTRUCTIONS: 1. Diet: Regular. 2. Medications: a. Percocet 5/325 one to two p.o. every 4-6 hours p.r.n. pain. b. Motrin 800 one p.o. every 8 hours p.r.n. pain. 3. Followup in one week. Restrictions: Pelvic rest for 6 weeks. No heavy lifting. May drive when pain free and no longer on narcotics. MTDD
== END 2023-10-02 18:55 | disposition home or self-care (01) | DRG 787 ==
PROVIDERS: Obstetrics & Gynecology; Admitting Provider Obstetrics & Gynecology; Visit Provider Obstetrics & Gynecology
PROC: 10D00Z1 Extraction of Products of Conception, Low, Open Approach (ICD-10-PCS; CPT 59514; principal; 2023-09-29 16:00)
DX: O32.1XX0 Maternal care for breech presentation, not applicable or unspecified (principal); O86.4 Pyrexia of unknown origin following delivery; O75.82 Onset (spontaneous) of labor after 37 completed weeks of gestation but before 39 completed weeks gestation, with delivery by (planned) cesarean section; Z3A.38 38 weeks gestation of pregnancy; Z37.0 Single live birth; O99.344 Other mental disorders complicating childbirth; F41.8 Other specified anxiety disorders; F32.A Depression, unspecified; O99.334 Smoking (tobacco) complicating childbirth; F17.210 Nicotine dependence, cigarettes, uncomplicated
CPT/HCPCS: 36415; 51702; 59025; 80307; 81001; 85007; 85025; 85027; 86850; 86900; 86901; 87040; 96365; 96366; 96375; 96376

== ENCOUNTER 2023-10-06 09:20 | Outpatient (OUT) | payer BC, SELFPAY ==
--- OUTSIDE RECORDS SUMMARY | 2023-10-06 09:25 | XMS_ITS | CCD ---
Author Name Unknown Address [address] [place] [address] Organization [facility] Care Team Providers Care Equipment Service Associate Name Role Phone Unavailable Primary Care Provider UnavailAshlyn Hardy Primary Care Provider DR HUONG MENDOZA Attending Unavailable DR HUONG MENDOZA Consulting Unavailable DR HUONG MENDOZA Admitting Unavailable CLAUDIO, ASHLYN N Referring Unavailable CLAUDIO ASHLYN N Primary Care Unavailable CLAUDIO ASHLYN N Referring Unavailable CLAUDIO ASHLYN N Primary Care Unavailable Claudio BOTTLE BLOWING MACHINE TENDER - SUPERINTENDENT SERVICEAshlyn N Primary Care Prov ider CLAUDIO, ASHLYN N Primary Care Unavailable CLAUDIO, ASHLYN N Referring Unavailable CLAUDIO, ASHLYN N Referring Unavailable CLAUDIO, ASHLYN N Primary Care Unavailable Allergies Allergy Classification Reported Allergen(s) Allergy Type Date of Onset Reaction(s) Facility (6 sources) Contrast media Propensity to adverse reactions to drug 07-26-2019 [place] (6 sources) Lactose (non-medical use) Propensity to adverse reactions to drug 07-26-2019 [place] Medications Current Medications Medication Drug Class(es) Dates Sig (Normalized) Sig (Original) acetaminophen 325 mg / oxyCODONE hydrochloride 5 mg oral tablet (1 source) Opioid Agonist Start: 07-26-2019 End: 07-31-2019 take 1 tablet by mouth every four hours as needed for pain oxyCODONE-acetaminop hen (PERCOCET) 5-325 MG per tablet Indications: History of tonsillectomy Take 1 tablet by mouth every 4 hours as needed for Pain for up to 5 days. 20 tablet 0 07/26/2019 07/31/2019 Active calcium chloride 0.0014 meq/ml / potassium chloride 0.004 meq/ml / sodium chloride 0.103 meq/ml / sodium lactate 0.028 meq/ml injectable solution (1 source) Start: 07-26-2019 lactated ringers infusion cefuroxime 50 mg/ml oral suspension (1 source) Cephalosporin Antibacterial Start: 07-26-2019 End: 07-31-2019 take 5 mL by mouth twice daily cefUROXime (CEFTIN) 250 MG/5ML suspension Take 5 mLs by mouth 2 times daily for 5 days 50 mL 0 07/26/2019 07/31/2019 Active Chlorpheniramine (1 source) Histamine-1 Receptor Antagonist Chlorpheniramine Maleate (ALLERGY PO) Take by mouth 0 Active 1 ml diphenhydrAMINE hydrochloride 50 mg/ml cartridge (1 source) Histamine-1 Receptor Antagonist Start: 07-26-2019 End: 07-26-2019 diphenhydrAMINE (BENADRYL) injection 12.5 mg escitalopram 20 mg oral tablet (5 sources) Serotonin Reuptake Inhibitor Start: 01-20-2022 take 1 tablet by mouth once daily escitalopram (LEXAPRO) 20 MG tablet Indications: MARY (generalized anxiety disorder) TAKE ONE TABLET BY MOUTH DAILY 30 tablet 5 01/20/2022 Active Start: 10-09-2020 take 1 tablet by matthew th once daily escitalopram (LEXAPRO) 10 MG tablet Indications: MARY (generalized anxiety disorder) TAKE ONE TABLET BY MOUTH DAILY 30 tablet 2 10/09/2020 Active Start: 06-19-2020 take 1 tablet by matthew th once daily escitalopram (LEXAPRO) 10 MG tablet Indications: MARY (generalized anxiety disorder) Take 1 tablet by mouth daily 30 tablet 3 06/19/2020 Active Ethinyl Estradiol / Ferrous fumarate / Norethindrone (5 sources) Estrogen Start: 04-24-2020 BLISOVI FE 1.5 /30 1.5-30 MG-MCG tablet fluticasone propionate 0.05 mg/actuat metered dose nasal spray (4 sources) Corticosteroid Start: 11-07-2020 take 1 spray(s) nasal route once daily fluticasone (FLONASE) 50 MCG/ACT nasal spray 1 spray by Each Nostril route daily 1 Bottle 3 11/07/2020 Active Start: 05-17-2020 take 1 spray(s) nasa l route once daily fluticasone (FLONASE) 50 MCG/ACT nasal spray 1 spray by Each Nostril route daily 1 Bottle 3 05/17/2020 Active 1 ml HYDROmorphone hydrochloride 1 mg/ml cartridge (1 source) Opioid Agonist Start: 07-26-2019 HYDROmorphone (DILAUDID) injection 0.5 mg labetalol (NORMODYNE;TRANDATE ) injection syringe 5 mg (1 source) Start: 07-26-2019 labetalol (NORMODYNE;TRANDATE ) injection syringe 5 mg 1 ml meperidine hydrochloride 25 mg/ml cartridge (1 source) Opioid Agonist Start: 07-26-2019 meperidine (DEMEROL) injection 12.5 mg montelukast 10 mg oral tablet (1 source) Leukotriene Receptor Antagonist Start: 02-24-2022 take 1 tablet by mouth once daily montelukast (SINGULAIR) 10 MG tablet Take 1 tablet by mouth daily 30 tablet 3 02/24/2022 Active 1 ml morphine sulfate 2 mg/ml cartridge (1 source) Opioid Agonist Start: 07-26-2019 morphine (PF) injection 2 mg Multiple Vitamins-Minerals (MULTI-VITAMIN GUMMIES PO) (4 sources) Multiple Vitamins-Minerals (MULTI-VITAMIN GUMMIES PO) Take by mouth 0 Active olopatadine 1 mg/ml ophthalmic solution (1 source) Histamine-1 Receptor Inhibitor Start: 04-10-2022 take 1 drop(s) into the eye(s) twice daily olopatadine (PATANOL) 0.1 % ophthalmic solution Place 1 drop into both eyes 2 times daily 5 mL 3 04/10/2022 Active 2 ml ondansetron 2 mg/ml injection (1 source) Serotonin-3 Receptor Antagonist Start: 07-26-2019 End: 07-26-2019 ondansetron (ZOFRAN) injection 4 mg PARoxetine hydrochloride 10 mg oral tablet (3 sources) Serotonin Reuptake Inhibitor Start: 05-16-2020 take 1 tablet by mouth once daily PARoxetine (PAXIL) 10 MG tablet Indications: MARY (generalized anxiety disorder) Take 1 tablet by mouth daily 30 tablet 3 05/16/2020 Active 72 hr scopolamine 0.0139 mg/hr transdermal system (1 source) Anticholinergic Start: 07-26-2019 scopolamine (TRANSDERM-SCOP) transdermal patch 1 patch SUMAtriptan 50 mg oral tablet (1 source) Serotonin-1b and Serotonin-1d Receptor Agonist Start: 11-07-2020 take 1 tablet by mouth once as needed SUMAtriptan (IMITREX) 50 MG tablet Indications: Acute nonintractable headache, unspecified headache type Take 1 tablet by mouth once as needed for Migraine 9 tablet 3 11/07/2020 Active sprinkle 24 hr topiramate 25 mg extended release oral capsule (1 source) Start: 02-27-2022 take 25 mg by mouth once daily Topiramate ER (QUDEXY XR) 25 MG CS24 Indications: Chronic migraine without aura without status migrainosus, not intractable Take 25 mg by mouth daily 30 each 5 02/27/2022 Active Problems Active Problems Problem Classification Problem Date Documented Da te Episodic/Chronic Anxiety disorders (1 source) Generalized anxiety disorder; Translations: [MARY (generalized anxiety disorder)] Chronic Coma; stupor; and brain damage (1 source) Daytime somnolence; Translations: [Excessive daytime sleepiness] Episodic Headache; including migraine (1 source) Morning headache; Translations: [Morning headache] Episodic Immunizations and screening for infectious disease (1 source) Encounter for screening for human papillomavirus (HPV); Translations: [ENC SCREENING HUMAN PAPILLOMAVIRUS] Onset: 01-24-2021 Episodic Other gastrointestinal disorders (1 source) Abdominal bloating; Translations: [Abdominal bloating] Episodic Other non-traumatic joint disorders (1 source) Multiple joint pain; Translations: [Arthralgia of multiple sites] Episodic Other screening for suspected conditions (not mental disorders or infectious disease) (5 sources) Encounter for screening for malignant neoplasm of cervix; Translations: [Patient encounter status] Onset: 01-17-2021 Episodic Other upper respiratory infections (3 sources) Sore throat symptom; Translations: [Acute maxillary sinusitis] Episodic Residual codes; unclassified (1 source) History of tonsillectomy ; Translations: [History of tonsillectomy] Episodic Past or Other Problems Problem Classification Problem Date Documented Da te Episodic/Chronic Other connective tissue disease (1 source) Cramp in lower limb; Translations: [Leg cramps] Episodic Results Test Name Value Interpretation Reference Range Facil ity Glucose, Fastingon 2 Glucose [Mass/Vol] 75 mg/dL Normal 70-99 [facility] Comment on above: Performed By: #### L IPRF, GLUF #### [facility] [address] [place], [place] [id number] Environmental Services Lead: Cory Hightower MD Lipid Prof, Fastingon 2021 Cholesterol [Mass/Vol] 152 mg/dL Normal <200 [facility] Comment on above: Result Comment: Cholesterol Guidelines: <200 Desirable 200-240 Borderline >240 Undesirable Performed By: #### L IPRF, GLUF #### [facility] [address] [place] [address] Environmental Services Lead: Cory Hightower MD Cholesterol in HDL [Mass/Vol] 60 mg/dL Normal >40 [facility] Comment on above: Result Comment: HDL Guidelines: <40 Undesirable 40-59 Borderline >59 Desirable Performed By: #### L IPRF, GLUF #### [facility] [address] [place] [address] Environmental Services Lead: Cory Hightower MD Cholesterol in LDL [Mass/Vol] 73 mg/dL Normal 0-130 [facility] Comment on above: Result Comment: LDL Guidelines: <100 Desirable 100-129 Near to/above Desirable 130-159 Borderline >159 Undesirable Direct (measured) LDL and calculated LDL are not interchangeable tests. Performed By: #### L IPRF, GLUF #### [facility] [address] [place] [address] Environmental Services Lead: Cory Hightower MD Cholesterol.total/Ch olesterol in HDL [Mass ratio] 2.5 {ratio} Normal <5 [facility] Comment on above: Performed By: #### L IPRF, GLUF #### [facility] [address] [place] [address] Environmental Services Lead: Cory Hightower MD Triglyceride,Fasting 97 mg/dL Normal <150 [facility] Comment on above: Result Comment: Triglyceride Guidelines: <150 Desirable 150-199 Borderline 200-499 High >499 Very high Based on AHA Guidelines for fasting triglyceride, July 2012. Performed By: #### L IPRF, GLUF #### [facility] [address] [place] [address] Environmental Services Lead: Cory Hightower MD Glucose, Fastingon Glucose [Mass/Vol] 75 mg/dL 70 - 99 mg/dL [facility] Lipid, Fastingon 04-10-2022 Cholesterol [Mass/Vol] 152 mg/dL <200 [facility] Comment on above: Cholesterol Guidelines: <200 Desirable 200-240 Borderline >240 Undesirable Cholesterol in HDL [Mass/Vol] 60 mg/dL >40 [facility] Comment on above: HDL Guidelines: <40 Undesirable 40-59 Borderline >59 Desirable Cholesterol in LDL [Mass/Vol] 73 mg/dL 0 - 130 mg/dL [facility] Comment on above: LDL Guidelines: <100 Desirable 100-129 Near to/above Desirable 130-159 Borderline >159 Undesirable Direct (measured) LDL and calculated LDL are not interchangeable tests. Cholesterol.total/Ch olesterol in HDL [Mass ratio] 2.5 {ratio} <5 [facility] Triglyceride, Fasting 97 mg/dL <150 [facility] Comment on above: Triglyceride Guidelines: <150 Desirable 150-199 Borderline 200-499 High >499 Very high Based on AHA Guidelines for fasting triglyceride, July 2012. No Panel Informationon 04-10 [facility] MR[facility] HEAD W WO CONTRASTon MRV HEAD W WO CONTRAST EXAMINATION: MRV OF THE HEAD WITH AND WITHOUT CONTRAST 11/20/2021: TECHNIQUE: Multiplanar multisequence MRV of the head was performed with and without the administration of intravenous contrast. COMPARISON: MRI 11/12/2021. HISTORY: ORDERING SYSTEM PROVIDED HISTORY: Dural sinus thrombosis TECHNOLOGIST PROVIDED HISTORY: Is the patient ?->No Reason for Exam: Pt states abnormal MRI brain x 1 week order states dural sinus thrombosis Initial evaluation. FINDINGS: No focal stenosis or thrombus is seen of the major dural venous sinuses. IMPRESSION: Unremarkable MRV of the head. Interpreted by: Aamir Zhu MD Signed by: Aamir Zhu MD 11/20/21 Final result Normal [facility] MRI BRAIN WO CONTRASTon 02-0 MRI BRAIN WO CONTRAST EXAMINATION: MRI OF THE BRAIN WITHOUT CONTRAST 11/12/2021 10:22 am TECHNIQUE: Multiplanar multisequence MRI of the brain was performed without the administration of intravenous contrast. COMPARISON: None. HISTORY: ORDERING SYSTEM PROVIDED HISTORY: Chronic migraine without aura without status migrainosus, not intractable TECHNOLOGIST PROVIDED HISTORY: Is the patient ?->No Reason for Exam: pt stated migraines 1.5 yrs Additional signs and symptoms: migraines Initial evaluation FINDINGS: INTRACRANIAL STRUCTURES/VENTRICLES: There is no acute infarct. The ventricles and cisternal spaces are normal in size, shape, and configuration for the age of the patient. No areas of abnormal signal are identified in the brain parenchyma. There is no midline shift or mass effect. There are no areas of restricted diffusion. There is high signal on the sagittal T1 weighted images involving the sagittal sinus and transverse sinuses. This raises concern for slow flow in the sinus or possible sinus thrombosis. MRV of the intracranial circulation is suggested to further evaluate. ORBITS: The visualized portion of the orbits demonstrate no acute abnormality. SINUSES: There is minimal mucoperiosteal thickening of the ethmoid air cells. The remainder of the sinuses are clear. The mastoid air cells are clear. BONES/SOFT TISSUES: The bone marrow signal intensity appears normal. The soft tissues demonstrate no acute abnormality. IMPRESSION: There is high signal in the sagittal sinus and transverse sinuses which is of uncertain significance. This cannot be confirmed on T2, and FLAIR images which could mean it is artifactual. However, this also raises concern for possible dural venous sinus thrombosis in the appropriate clinical setting. MRV of the intracranial circulation with and without contrast or CT of the intracranial circulation is suggested to further evaluate. No other abnormality is identified. The findings were sent to the Radiology Results Communication Center at 11:42 am on 11/12/2021to be communicated to a licensed caregiver. The findings were discussed with Ashlyn Helms at 1:14 p.m. Interpreted by: Marcela Boyd MD Signed by: Marcela Boyd MD 11/13/21 Final result Normal [facility] Lipid Prof, Fastingon 2020 Cholesterol [Mass/Vol] 165 mg/dL Normal <200 [facility] Comment on above: Result Comment: Cholesterol Guidelines: <200 Desirable 200-240 Borderline >240 Undesirable Performed By: #### [facility] #### [facility] [address] [place], [place] [id number] Environmental Services Lead: Cory Hightower MD Cholesterol in HDL [Mass/Vol] 60 mg/dL Normal >40 [facility] Comment on above: Result Comment: HDL Guidelines: <40 Undesirable 40-59 Borderline >59 Desirable Performed By: #### L IPRF #### [address] [address] Environmental Services Lead: Cory Hightower MD Cholesterol in LDL [Mass/Vol] 85 mg/dL Normal 0-130 [facility] Comment on above: Result Comment: LDL Guidelines: <100 Desirable 100-129 Near to/above Desirable 130-159 Borderline >159 Undesirable Direct (measured) LDL and calculated LDL are not interchangeable tests. Performed By: #### L IPRF #### [address] [address] Environmental Services Lead: Cory Hightower MD Cholesterol.total/Ch olesterol in HDL [Mass ratio] 2.8 {ratio} Normal <5 [facility] Comment on above: Performed By: #### L IPRF #### [address] [address] Environmental Services Lead: Cory Hightower MD Triglyceride,Fasting 100 mg/dL Normal <150 [facility] Comment on above: Result Comment: Triglyceride Guidelines: <150 Desirable 150-199 Borderline 200-499 High >499 Very high Based on AHA Guidelines for fasting triglyceride, July 2012. Performed By: #### L IPRF #### [address] [address] Environmental Services Lead: Cory Hightower MD Cholesterol,VLDL NOT REPORTED Normal -30 [facility] Comment on above: Performed By: #### L IPRF #### [address] [address] Environmental Services Lead: Cory Hightower MD PAP ACOG PANEL 2: 22 to 29on 01-22-2021 . . Normal [facility] Comment on above: Performed By: #### [id number] #### [facility] [address] [place] [address] Brian Mcgovern Age Gdln ACOG Testing 21-29 Normal [facility] Comment on above: Performed By: #### [id number] #### [facility] [address] [place] [address] Brian Mcgovern DIAGNOSIS: Comment Normal [facility] Comment on above: Result Comment: NEGA TIVE FOR INTRAEPITHELIAL LESION OR MALIGNANCY. Performed By: #### [id number] #### [facility] [address] [place] [address] Brian Mcgovern Methodology: Comment [facility] Comment on above: Result Comment: This liquid based ThinPrep(R) pap test was screened with the use of an image guided system. Performed By: #### [id number] #### [facility] [address] [place] [address] Brian Mcgovern Note: Comment [facility] Comment on above: Result Comment: The Pap smear is a screening test designed to aid in the detection of premalignant and malignant conditions of the uterine cervix. It is not a diagnostic procedure and should not be used as the sole means of detecting cervical cancer. Both false-positive and false-negative reports do occur. . Performed By: #### [id number] #### [facility] [address] [place] [address] Brian Mcgovern Performed by: Comment Normal [facility] Comment on above: Result Comment: [employer] (ASCP) Performed By: #### [id number] #### [facility] [address] [place] [address] Brian Mcgovern Reflex Criteria: Comment [facility] Comment on above: Result Comment: The HPV DNA reflex criteria were not met with this specimen result therefore, no HPV testing was performed. . Performed By: #### [id number] #### [facility] [address] [place] [address] Brian Mcgovern Specimen adequacy: Comment Normal [facility] Comment on above: Result Comment: Sati sfactory for evaluation. Endocervical and/or squamous metaplastic cells (endocervical component) are present. Performed By: #### [id number] #### [facility] [address] [place] [address] Brian Mcgovern CBC Auto Differentialon 11-05 Basophils (Bld) [#/Vol] 0.05 10*3/uL [employer] Phone: Basophils/100 WBC (Bld) 1 % 0 - 2 % [employer] Work Phone: Differential Type NOT REPORTED [employer] Phone: Eosinophils (Bld) [#/Vol] 0.08 10*3/uL [employer] Phone: Eosinophils/100 WBC (Bld) 1 % 1 - 4 % [employer] Phone: Erythrocyte distribution width (RBC) [Ratio] 12.2 % 11.8 - 14.4 % [employer] Phone: Hematocrit (Bld) [Volume fraction] 43.9 % 36.3 - 47.1 % [employer] Phone: Hemoglobin (Bld) [Mass/Vol] 14.1 g/dL 11.9 - 15.1 g/dL [employer] Phone: Immature granulocytes (Bld) [#/Vol] 0 % 0 [employer] Phone: Immature granulocytes (Bld) [#/Vol] 10*3/uL [employer] Phone: Lymphocytes (Bld) [#/Vol] 1.77 10*3/uL [employer] Phone: Lymphocytes/100 WBC (Bld) 29 % 24 - 43 % [employer] Phone: MCH (RBC) [Entitic mass] 29.9 pg 25.2 - 33.5 pg [employer] Phone: MCHC (RBC) [Mass/Vol] 32.1 g/dL 28.4 - 34.8 g/dL [facility] [employer] Work Phone: MCV (RBC) [Entitic vol] 93.2 fL 82.6 - 102.9 fL [facility] [employer] Work Phone: Monocytes (Bld) [#/Vol] 0.65 10*3/uL [facility] Work Phone: Monocytes/100 WBC (Bld) 11 % 3 - 12 % [facility] [employer] Work Phone: Platelet mean volume (Bld) [Entitic vol] 11.4 fL 8.1 - 13.5 fL [facility] [employer] Work Phone: Platelets (Bld) [#/Vol] NOT REPORTED [facility] [employer] Work Phone: Platelets (Bld) [#/Vol] 218 10*3/uL [facility] [employer] Work Phone: RBC (Bld) [#/Vol] 4.71 10*6/uL 3.95 - 5.1 1 m/uL [facility] [employer] Work Phone: RBC morphology finding Nom (Bld) NOT REPORTED [facility] [employer] Work Phone: Segmented neutrophils/100 WBC (Bld) 58 % 36 - 65 % [facility] [employer] Work Phone: Segs Absolute 3.57 [facility] Work Phone: WBC (Bld) [#/Vol] 0.0 10*3/uL 0.0 per 100 WBC [facility] [employer] Work Phone: WBC (Bld) [#/Vol] 6.1 10*3/uL [facility] [employer] Work Phone: WBC Morphology NOT REPORTED [facility] Work Phone: Comprehensive Metabolic Pane jose 11-19-2020 Albumin [Mass/Vol] 4.2 g/dL 3.5 - 5.2 g/dL [facility] [employer] Work Phone: Albumin/Globulin [Mass ratio] 1.4 {ratio} [facility] [employer] Phone: ALP [Catalytic activity/Vol] 49 U/L 35 - 104 U/L [facility] [employer] Work Phone: ALT [Catalytic activity/Vol] 14 U/L 5 - 33 U/L [facility] [employer] Phone: Anion gap [Moles/Vol] 9 mmol/L 9 - 17 mmol/L [facility] [employer] Work Phone: AST [Catalytic activity/Vol] 18 U/L <32 [facility] [employer] Phone: Bilirubin Ql (U) 0.30 mg/dL 0.3 - 1.2 mg/dL [facility] [employer] Work Phone: Bun/Cre Ratio NOT REPORTED [facility] Work Phone: Calcium [Mass/Vol] 9.4 mg/dL 8.6 - 10. 4 mg/dL [facility] [employer] Phone: Chloride [Moles/Vol] 106 mmol/L 98 - 107 mmol/L [facility] [employer] Phone: CO2 [Moles/Vol] 25 mmol/L 20 - 31 mmol/L [facility] [employer] Phone: Creatinine [Mass/Vol] 0.73 mg/dL 0.5 - 0.9 mg/dL [facility] [employer] Phone: GFR >60 >60 mL/min [facility] [employer] Work Phone: GFR Non- >60 >60 mL/min [facility] [employer] Phone: GFR/1.73 sq M predicted among non-blacks MDRD (S/P/Bld) [Vol rate/Area] NOT REPORTED [facility] [employer] Phone: GFR/1.73 sq M predicted among non-blacks MDRD (S/P/Bld) [Vol rate/Area] [facility] [employer] Phone: Comment on above: Average GFR for 20-2 9 years old: 116 mL/min/1.73sq m Chronic Kidney Disease: <60 mL/min/1.73sq m Kidney failure: <15 mL/min/1.73sq m eGFR calculated using average adult body mass. Additional eGFR calculator available at: http://www.On-Q-ity/multiple_crcl_2012.htm Glucose [Mass/Vol] 88 mg/dL 70 - 99 mg/dL [facility] [employer] Work Phone: Potassium [Moles/Vol] 4.4 mmol/L 3.7 - 5.3 mmol/L [facility] [employer] Work Phone: Protein [Mass/Vol] 7.3 g/dL 6.4 - 8.3 g/dL [facility] [employer] Work Phone: Sodium [Moles/Vol] 140 mmol/L 135 - 144 mmol/L [facility] [employer] Phone: Urea nitrogen [Mass/Vol] 9 mg/dL 6 - 20 mg/dL [facility] [employer] Work Phone: Rheumatoid Factoron 11-19-19 21 Rheumatoid Factor <10 <14 IU/mL [facility] Work Phone: CBC Auto Differentialon 07-05 Basophils (Bld) [#/Vol] 0.10 10*3/uL [place] Basophils/100 WBC (Bld) 1 % 0 - 2 % [place] Differential Type NOT REPORTED [place] Eosinophils (Bld) [#/Vol] 0.10 10*3/uL [place] Eosinophils/100 WBC (Bld) 2 % 0 - 4 % [place] Erythrocyte distribution width (RBC) [Ratio] 12.9 % 11.5 - 14.9 % [place] Hematocrit (Bld) [Volume fraction] 38.8 % 36 - 46 % [place] Hemoglobin (Bld) [Mass/Vol] 13.0 g/dL 12 - 16 g/dL [place] Interpretation and review of laboratory results Abnormal [place] Lymphocytes (Bld) [#/Vol] 2.50 10*3/uL [place] Lymphocytes/100 WBC (Bld) 36 % 24 - 44 % [place] MCH (RBC) [Entitic mass] 30.3 pg 26 - 34 pg [place] MCHC (RBC) [Mass/Vol] 33.4 g/dL 31 - 37 g/dL [place] MCV (RBC) [Entitic vol] 90.6 fL 80 - 100 fL [place] Monocytes (Bld) [#/Vol] 0.70 10*3/uL [place] Monocytes/100 WBC (Bld) 10 % High 1 - 7 % [place] Platelet mean volume (Bld) [Entitic vol] 9.5 fL 6 - 12 fL [place] Platelets (Bld) [#/Vol] NOT REPORTED [place] Platelets (Bld) [#/Vol] 191 10*3/uL [place] RBC (Bld) [#/Vol] 4.28 10*6/uL 4 - 5.2 m/uL [place], [place] RBC morphology finding Nom (Bld) NOT REPORTED [place] Segmented neutrophils/100 WBC (Bld) 51 % 36 - 66 % [place] Segs Absolute 3.50 [place] WBC (Bld) [#/Vol] 6.8 10*3/uL [place] WBC (Bld) [#/Vol] NOT REPORTED per 100 WBC [place] WBC Morphology NOT REPORTED [place], [place] Comprehensive Metabolic Pane jose 07-18-2020 Albumin [Mass/Vol] 4.1 g/dL 3.5 - 5.2 g/dL [place], [place] Albumin/Globulin [Mass ratio] NOT REPORTED [place] ALP [Catalytic activity/Vol] 58 U/L 35 - 104 U/L [place] ALT [Catalytic activity/Vol] 14 U/L 5 - 33 U/L [place] Anion gap [Moles/Vol] 8 mmol/L Low 9 - 17 mmol/L [place] AST [Catalytic activity/Vol] 17 U/L <32 [place] Bilirubin Ql (U) <0.15 Low 0.3 - 1.2 mg/dL [place] Bun/Cre Ratio NOT REPORTED [place], [place] Calcium [Mass/Vol] 9.1 mg/dL 8.6 - 10. 4 mg/dL [place] Chloride [Moles/Vol] 104 mmol/L 98 - 107 mmol/L [place] CO2 [Moles/Vol] 26 mmol/L 20 - 31 mmol/L [place] Creatinine [Mass/Vol] 0.53 mg/dL 0.5 - 0.9 mg/dL [place] GFR >60 >60 mL/min [place] GFR Non- >60 >60 mL/min [place] GFR/1.73 sq M predicted among non-blacks MDRD (S/P/Bld) [Vol rate/Area] [place] Comment on above: Average GFR for 20-2 9 years old: 116 mL/min/1.73sq m Chronic Kidney Disease: <60 mL/min/1.73sq m Kidney failure: <15 mL/min/1.73sq m eGFR calculated using average adult body mass. Additional eGFR calculator available at: http://www.[employer]/multiple_crcl_2011.htm GFR/1.73 sq M predicted among non-blacks MDRD (S/P/Bld) [Vol rate/Area] NOT REPORTED [place] Glucose [Mass/Vol] 127 mg/dL High 70 - 99 mg/dL [place], [place] Interpretation and review of laboratory results Abnormal [place] Potassium [Moles/Vol] 3.8 mmol/L 3.7 - 5.3 mmol/L [place] Protein [Mass/Vol] 7.0 g/dL 6.4 - 8.3 g/dL [place], [place] Sodium [Moles/Vol] 138 mmol/L 135 - 144 mmol/L [place] Urea nitrogen [Mass/Vol] 11 mg/dL 6 - 20 mg/dL [place] Magnesiumon 07-18-2020 Magnesium [Mass/Vol] 1.9 mg/dL 1.6 - 2.6 mg/dL [place] Otheron 07-18-2020 Immature granulocytes (Bld) [#/Vol] NOT REPORTED 0 % [place] TSH without Reflexon 020 TSH Qn 2.79 m[IU]/L [place] POCT HCG, Prenancy, Uron Beta HCG ( test) Ql (U) Negative NEGATIVE [place] Comment on above: HCG screen is sensitive to 25 mIU/mL. However this test may pickers material handlers lower levels of HCG. If further evaluation is needed please request quantitative HCG. - NOT REPORTED [place] SINUS WO CONTRASTon 06-21 Clear paranasal sinuses. [place] EXAMINATION: CT OF T HE SINUS WITHOUT CONTRAST 06/21/2019 7:10 pm TECHNIQUE: CT of the sinuses was performed without the administration of intravenous contrast. Multiplanar reformatted images are provided for review. Dose modulation, iterative reconstruction, and/or weight based adjustment of the mA/kV was utilized to reduce the radiation dose to as low as reasonably achievable. COMPARISON: None HISTORY: ORDERING SYSTEM PROVIDED HISTORY: Acute recurrent maxillary sinusitis TECHNOLOGIST PROVIDED HISTORY: stereotactic Reason for Exam: patient states that she is having surgery to have her tonsils taken out, they are checking sinuses to make sure no other issues Type of Exam: Unknown FINDINGS: SINUSES/MASTOIDS: The maxillary sinuses, sphenoid sinuses, ethmoid air cells and frontal sinuses are clear. The nasal septum is midline. The ostiomeatal complexes are normal. The middle ears and mastoid air cells are clear. SOFT TISSUES: Limited evaluation the orbits is unremarkable. Limited evaluation the brain is unremarkable. [place], [place] Kun, M[facility] Incoming Radiant Results From [employer] - 06/21/2019 7:27 PM EDT EXAMINATION: CT OF THE SINUS WITHOUT CONTRAST 06/21/2019 7:10 pm TECHNIQUE: CT of the sinuses was performed without the administration of intravenous contrast. Multiplanar reformatted images are provided for review. Dose modulation, iterative reconstruction, and/or weight based adjustment of the mA/kV was utilized to reduce the radiation dose to as low as reasonably achievable. COMPARISON: None HISTORY: ORDERING SYSTEM PROVIDED HISTORY: Acute recurrent maxillary sinusitis TECHNOLOGIST PROVIDED HISTORY: stereotactic Reason for Exam: patient states that she is having surgery to have her tonsils taken out, they are checking sinuses to make sure no other issues Type of Exam: Unknown FINDINGS: SINUSES/MASTOIDS: The maxillary sinuses, sphenoid sinuses, ethmoid air cells and frontal sinuses are clear. The nasal septum is midline. The ostiomeatal complexes are normal. The middle ears and mastoid air cells are clear. SOFT TISSUES: Limited evaluation the orbits is unremarkable. Limited evaluation the brain is unremarkable. IMPRESSION: Clear paranasal sinuses. [place] Vital Signs Date Time Vital Sign Value Performing Clinician Faci lity 07-26-2019 11:05-0400 BP Diastolic 80 mm[Hg] [place] 07-26-2019 11:05-0400 BP Systolic 131 mm[Hg] [place] 07-26-2019 11:05-0400 Pulse (Heart Rate) 80 /min [place] 07-26-2019 11:05-0400 Respiratory Rate 16 /min [place] 07-26-2019 10:37-0400 Body Temperature 98.01 [degF] [place], [place] 07-26-2019 10:37-0400 Pulse Oximetry 95 % [place] 07-26-2019 07:11-0400 BMI (Body Mass Index) 20.36 kg/m2 [place], [place] 07-26-2019 07:11-0400 Body weight 58.97 kg [place] 07-26-2019 07:11-0400 Height 170.2 cm [place] Encounters Encounter Date Encounter Type Care Provider Facility Start: 04-10-2022 End: 04-11-2022 [facility] Start: 04-10-2022 End: 04-10-2022 Subsequent hospital visit by physician Ashlyn Helms APRN - SUPERINTENDENT SERVICE Work Phone: [facility] Lab Comment on above: Screening for condit ion Start: 11-20-2021 End: 11-23-2021 ambulatory [facility] Start: 11-12-2021 End: 11-15-2021 ambulatory [facility] Start: 05-16-2021 End: 05-17-2021 ambulatory [facility] Start: 01-17-2021 End: 01-17-[address] HUONG MENDOZA Facility: Start: 11-19-2020 End: 11-19-2020 Subsequent hospital visit by physician Ashlyn TILLMAN [facility] Lab Comment on above: Arthralgia of multip le sites; Abdominal bloating Start: 07-25-2020 End: 07-25-2020 Subsequent hospital visit by physician [facility] Sleep Center Comment on above: Canceled (Error) Start: 07-25-2020 End: 07-27-2020 Subsequent hospital visit by physician [facility] Sleep Center Comment on above: Sore throat in the m orning; Morning headache; Excessive daytime sleepiness Start: 07-18-2020 End: 07-18-2020 Subsequent hospital visit by physician Ashlyn CAREY Laboratory Comment on above: Leg cramps; Sore throat in the morning; MARY (generalized anxiety disorder) Start: 07-26-2019 End: 07-26-2019 Subsequent hospital visit by physician Tyron Dillard Work Phone: [facility] OR Comment on above: History of tonsillec derek (Primary Dx) Start: 06-21-2019 End: 06-23-2019 Subsequent hospital visit by physician Jose Ct Rm [facility] [address] Scan Comment on above: Acute recurrent maxi llary sinusitis Procedures Date Procedure Procedure Detail Performing Clinician Start: 04-10-[address] gtt 3 specimens Ashlyn Helms BOTTLE BLOWING MACHINE TENDER - SUPERINTENDENT SERVICE Work Phone: Start: 04-10-2022 Lipid panel Ashlyn Rendon syedkathygiana BOTTLE BLOWING MACHINE TENDER - SUPERINTENDENT SERVICE Work Phone: Start: 11-19-2020 Assay of gammaglobul in iga igd igg igm each Ashlyn Helms Work Phone: Start: 11-19-2020 Blood count complete auto&auto difrntl wbc Ashlyn Helms Work Phone: Start: 11-19-2020 Comprehensive metabo lic panel Ashlyn Helms Work Phone: Start: 11-19-2020 Rheumatoid factor quantitative Ashlyn Helms Work Phone: Start: 07-18-2020 Assay of magnesium Lloydl leonila Helms Work Phone: Start: 07-18-2020 Assay of thyroid stimulating hormone tsh Ashlyn Helms Work Phone: Start: 07-18-2020 Blood count complete auto&auto difrntl wbc Ashlyn Helms Work Phone: Start: 07-18-2020 Comprehensive metabo lic panel Ashlyn Helms Work Phone: Start: 07-26-2019 Urine test visual color cmprsn meths Tyron Adappa Work Phone: Start: 06-21-2019 Ct maxillofacial w/o contrast material Tyron Adappa Work Phone: Plan of Treatment Date Care Activity Detail Author Start: 02-27-2023 Depression Screen Depression Screen [facility] Start: 06-05-2022 Influenza vaccination Flu vaccine (# 1) [facility] Start: 07-31-2020 End: 07-31-2020 Virtual Visit 07/31/2020 Virtual Visit Family Medicine Ashlyn Helms, BOTTLE BLOWING MACHINE TENDER - SUPERINTENDENT SERVICE [address] [place] [address] [phone] [facility] Start: 06-05-2020 Influenza vaccination Flu vaccine (# 1) [place] Start: 07-26-2019 End: 07-26-2019 Hospital Encounter [facility] OR Comment on above: TONSILLECTOMY ADENOI DECTOMY Start: 06-05-2019 Influenza vaccination Flu vaccine (# 1) [place] Start: 2017 Cervical cancer screen Cervical canc er [place] Start: 2017 Screening for malign ant neoplasm of cervix [facility] Start: 2014 Hepatitis C screening Hepatitis C sc reen [facility] Start: 2012 Chlamydia screen Chlamydia screen [place], [place] Start: 2012 Screening for Chlamy jane trachomatis [place]lam[place] Start: 2011 HIV screen HIV screen [place] Start: 2011 [facility] screening [facility] Start: 2011 HPV vaccine (1 - Fem yoli 3-dose series) HPV vaccine (1 - Female 3-dose series) [place] Start: 2009 Varicella Vaccine (1 of 2 - 13+ 2-dose series) Varicella Vaccine (1 of 2 - 13+ 2-dose series) [place] Start: 2007 DTaP/Tdap/Td vaccine (6 - Tdap) DTaP/Tdap/Td vaccine (6 - Tdap) [facility] Start: 2007 HPV vaccine (1 - 2-d ose series) HPV vaccine (1 - 2-dose series) [facility] Start: 2002 Pneumococcal 0-64 ye ars Vaccine (1 of 1 - PPSV23) Pneumococcal 0-64 years Vaccine (1 of 1 - PPSV23) [place] Start: 2001 COVID-19 Vaccine (1) COVID-19 Vaccin e (1) [facility] Start: 1997 Varicella vaccine (1 of 2 - 2-dose childhood series) Varicella vaccine (1 of 2 - 2-dose childhood series) [facility] Start: 1996 Hepatitis C screening Hepatitis C sc shaheedjose [facility] Work Phone: End: 11-19-2020 [facility] Screen with Reflex [facility] Screen with Reflex Lab Routine Arthralgia of multiple sites 1 Occurrences starting 11/19/2020 until 11/19/2020 [employer] Phone: Comment on above: 1 Occurrences starti ng 11/19/2020 until 11/19/2020 [facility] Screen with Reflex [facility] Scree n with Reflex Lab Routine Arthralgia of multiple sites 11/19/2020 11:45 AM [employer] Phone: Celiac Reflex Panel Celiac Refle x Panel Lab Routine Arthralgia of multiple sites Abdominal bloating 11/19/2020 11:45 AM [employer] Phone: End: 07-25-2020 Home Sleep Study [facility] Routine Sore throat in the morning Morning headache Excessive daytime sleepiness 1 Occurrences starting 07/25/2020 until 07/25/2020 [place] Comment on above: 1 Occurrences starti ng 07/25/2020 until 07/25/2020 Initiate Oxygen Ther apy Protocol Initiate Oxygen Therapy Protocol Respiratory Care Routine Daily until discontinued starting 07/26/2019 [place] Comment on above: Daily until disconti nued starting 07/26/2019 Phase I & II - meter ed glucose Phase I & II - metered glucose Point of Care Testing Routine As Needed until discontinued starting 07/26/2019 [place] Comment on above: As Needed until disc ontinued starting 07/26/2019 Surgical Pathology Surgical Path ology Lab Routine ONE TIME for 1 Occurrences starting 07/26/2019 [place] Comment on above: ONE TIME for 1 Occur rences starting 07/26/2019 End: 07-26-2019 Surgical Pathology Surgical Pathology Lab Routine Once for 1 Occurrences starting 07/26/2019 until 07/26/2019 [place] Comment on above: Once for 1 Occurrenc es starting 07/26/2019 until 07/26/2019 Immunizations Immunization Date Immunization Notes Care Provider Leo adam 04-26-2001 diphtheria, tetanus toxoids and acellular pertussis vaccine [facility] 1 [facility], [place] 04-26-2001 measles, mumps and r ubella virus vaccine [facility] 1 [facility] 04-26-2001 poliovirus vaccine, inactivated [address], [place] 04-26-2001 tuberculin skin test ; purified protein derivative solution, intradermal [address], [place] 05-15-1999 diphtheria, tetanus toxoids and acellular pertussis vaccine [address], [place] 02-12-1999 measles, mumps and r ubella virus vaccine [address], [place] 02-12-1999 poliovirus vaccine, inactivated [address], [place] 04-14-1997 hepatitis B vaccine, unspecified formulation [address] , [place] 1996 diphtheria, tetanus toxoids and acellular pertussis vaccine [address], [place] 1996 poliovirus vaccine, inactivated [address], [place] 1996 diphtheria, tetanus toxoids and acellular pertussis vaccine [address], [place] 1996 diphtheria, tetanus toxoids and acellular pertussis vaccine [address] 1996 hepatitis B vaccine, unspecified formulation [address] , [place] 1996 poliovirus vaccine, inactivated [address], [place] 1996 hepatitis B vaccine, unspecified formulation [address] , [place] Payers Date Payer Category Payer Unknown [id number] 2020 Unknown [id number] 2014 Unknown BCBS BCBS OUT OF STATE xxxxxxxxxxxx 2014-Present [address] [place] [address] xxxxxxxxxxxx [id number] 1996 Unknown [id number] 1996 Unknown [id number] 1996 Unknown [id number] 1996 Unknown [id number] 1996 Unknown [id number] 1959 Unknown [id number] Social History Date Type Detail Facility Start: 07-26-2019 End: 05-16-2020 Tobacco smoking status PRIS Current [place] Start: 07-26-2019 Alcohol intake Yes [place] Start: 07-26-2019 Tobacco Comment [place] Sex Assigned At [place] on file [place] Start: 05-16-2020 End: 11-19-2020 [facility] and exposure [facility] [place] Start: 05-16-2020 End: 04-10-2022 Alcohol intake Current drinker of alcohol (finding) [place] Start: 1996 Sex Assigned At [place] Start: 11-19-2020 Tobacco smoking stat [facility] Former smoker [place] Start: 09-24-2021 History SDOH Financial 5 [facility] [employer] Phone: Start: 09-24-2021 History SDOH Food Worry 1 [employer] Phone: Evaluation note Note Date & Type Note Facility Evaluation note Diagnosis Screening for condition Screening for unspecified condition documented in this encounter [employer] Phone: Discharge Instructions * Instructions* Hiral Higuera RN - 07/26/2019 [facility] After Your Tonsillectomy Review your Before Your Tonsillectomy information given to you in the office. 1) Minimal spotting of blood is not unusual after tonsillectomy. When this is noticed, the patient should suck on ice chips or gargle ice water. If the bloody spotting persists, go to the emergency room to be evaluated. If there is an obvious amount of fresh blood, just go directly to the nearest emergency room. 2) Please, do not make an effort to look at your child's throat for 10 days. It looks (and smells) awful and will nauseate you and upset your child. Bad breath is usual for 7-10 days. Morning dragon breath is even more usual. 3) Some patients appear quite miserable after tonsillectomy; some do not. There is no way to distinguish one from the other prior to surgery. Positive demeanors and smiles on the faces of family members are extremely valuable. 4) Most discomfort after a tonsillectomy is due to muscle soreness and movement of those sore muscles, not the raw surfaces in the throat. For this reason, first swallows in the morning or swallows in the inactive sleeping period are always worse. Your child may awake out of a sound sleep with throat pain referred to the ear as earache. This earache is most common at the 4th through 8th day. This may occur during the day as well. 5) Each subsequent swallow becomes easier. Therefore, the more the throat is used for swallowing after the operation, the less the overall discomfort, and the sooner the throat heals. Sometimes the complaint of ear pain dominates. Earaches are considered normal after tonsillectomy. Expect sleeplessness. A perfect recovery will be a miserable week for you. This cannot be stated too strongly. However, this week , like the labor of childbirth, is worth it. 6) We recommend alternating between the acetaminophen and ibuprofen doses by four hours.Both can be purchased from your pharmacy without a prescription and should be dosed according to weight. 7) If you observe unusual sleepiness, confusion, or difficult or noisy breathing in your child, youshould stop administering the pain medication immediately and seek medical attention. 8) Chewing sugarless gum stimulates saliva, increases the rate of gentle swallowing, and hence, minimizes the discomfort and hurries the healing. Encourage chewing a great deal of gum, always for 30 minutes before meals and frequently in-between meals. Experience has shown that the more often a patient chews and swallows, the quicker the post-operative pain resolves. Be firm but gentle in encouraging your child to eat and drink. 9) The patient's diet should progress from soft foods in the first 24 hours, then up to a normal diet as tolerated the following day after surgery. Please avoid food with sharp edges for two weeks. This includes cracker, pretzels, chips, and pizza crusts. Tart juices and acidic foods should be avoided as well. Red colored drinks and popsicles should be avoided as well. 10) DEHYDRATION IS THE MOST COMMON REASON FOR RE-ADMISSION TO THE HOSPITAL AFTER THIS OPERATION. Ifyour child weighs less than 35 pounds, we recommend that your child consume 1/2 cup of any liquid (or popsicle) every hour while awake. If your child weighs more than 35 pounds, push for one cup of any liquid (or a whole popsicle) every hour while awake---or equal amounts over 3-4 hours. Do not awaken your child to drink. For the first seven days after surgery, all nutrients should be consumed cold or warm. Avoid hot foods or liquids. 11) Please take your child's temperature twice daily- 2pm and 7pm (temperatures go up in the evening.) If it exceeds 102 degrees Fahrenheit, please call me. You have the after-hours number. 12) Have your child avoid activity which would result in heavy and rapid breathing for 14 days. This includes swimming and playing sports. Return to school is at your option as long as the previous warning is honored. Most children need a week off school. 13) The day of surgery is considered a free day. The medication given during surgery will take care of any immediate post-operative pain and the anesthesia and nursing staff have supplied your child with plenty of intravenous fluids to make up for the long dry spell before surgery. The day after surgery is not free and is usually the worst day in reference to pain. Each subsequent day gets better until the fifth day when there is a short exacerbation of pain. The awful pain may last for 2weeks. Believe your child. There will be gagging of thick mucus during the post-operative period. Extra fluids will help this. 14) If your child develops dark urine from not drinking for any 10-12 hour period, he/she may be getting dehydrated and might need admission to the hospital for more fluids per the intravenous route.Please do not use this as a threat to your child because it makes the hospital a place of punishment where they will stick you with a needle. You must be firm, but pleasant, in forcing your child to drink. Keep your ego out of it--your child can out stubborn you every time! 15) Snoring will be prominent for the first 3 nights after surgery. When the swelling of the uvula (the punching bag hanging from the roof of the mouth) goes down, there should be peaceful nights...for all! DISCHARGE INSTRUCTIONS FOR GENERAL ANESTHESIA In order to continue your care at home, please follow the instructions below. Anesthesia Do not drink any alcoholic beverages or make any legal or important decisions for 24 hours. If your surgery was on an extremity or abdomen, do not drive or operate any machinery until yoursurgeon approves, otherwise do not drive or operate any machinery for 24 hours or as restricted by your surgeon. Pain Medications Please do not drive, operate machinery, or drink alcoholic beverages while taking any prescribed pain medication. Diet - Start out eating lightly (broth, soup, crackers, toast, etc.) advancing as tolerated to yourusual diet. Try to avoid spicy and greasy/fatty foods for 24 hours. Drink plenty of fluids after surgery, unless you are on a fluid restriction. Avoid milk/milk product for several hours. Call your surgeon for the following: ? You have pain that does not get better after you take pain medicine. ? For an oral temperature (by mouth) is 101 degrees or higher, chills, or excessive sweating. ? You have increasing and progressive bleeding or drainage from surgery site. ? Signs of an infection: increased swelling, redness, warmth, or hardness around surgery area or yellow or green drainage. ? Persistent nausea or vomiting and can t keep fluids down. ? If you are unable to urinate within 8 hours of surgery. ? Redness or swelling at IV site. ? For any questions or concerns you may have. documented in this encounter History of Present Illness * Tabitha Tracey RN - 07/26/2019 7:26 AM EDT Urine test negative. Results faxed to lab documented in this encounter Assessments Diagnosis History of tonsillectomy- Primary Other postprocedural status Diagnosis Sore throat in the morning Acute pharyngitis Morning headache Headache Excessive daytime sleepiness Diagnosis Leg cramps Cramp of limb Sore throat in the morning Acute pharyngitis MARY (generalized anxiety disorder) Generalized anxiety disorder Diagnosis Arthralgia of multiple sites Pain in joint, multiple sites Abdominal bloating Flatulence, eructation, and gas pain Diagnosis Acute recurrent maxillary sinusitis Acute maxillary sinusitis Advance Directives No Advanced Directives Records FoundDocuments on File Type Date Recorded Patient Imaging System Administrator Expl anation Advance Directives and Living Will Power of Electric Spot Welder Documents on File Type Date Recorded Patient Imaging System Administrator Expl anation ACP-Advance Directive ACP-Power of Electric Spot Welder Documents on File Type Date Recorded Patient Imaging System Administrator Expl anation ACP-Advance Directive ACP-Power of Electric Spot Welder Reason for Referral Status Reason Specialty Diagnoses / Procedures Referred By Contact Referred To Contact [facility] Diagnoses Sore throat in the morning Morning headache Excessive daytime sleepiness Frequent nocturnal awakening Procedures Home Sleep Study ME SLEEP STUDY, UNATTENDED, SIMUL RECORD HR/O2 SAT/RESP FLOW/RESP EFF HST Ashlyn Helms, BOTTLE BLOWING MACHINE TENDER - SUPERINTENDENT SERVICE [address] [place] [address] [facility] [address] [place] [address] Status Reason Specialty Diagnoses / Procedures Referred By Contact Referred To Contact Pending Review Radiology Diagnoses Acute recurrent maxillary sinusitis Procedures CT SINUS WO CONTRAST Tyron Dillard MD [address] [place] [address] Summary Purpose Family History No Family History Records FoundNo Family History Records FoundNo Family History Records Found Additional Source Comments Reason for Visit (unrecogniz ed section and content) Status Reason Specialty Diagnoses / Procedures Referre d By Contact Referred To Contact Diagnoses Chronic tonsillitis CHRONIC TONSILLITIS (PAT PER ANES ON ADMIT) Procedures ME REMOVE TONSILS/ADENOIDS,12+ Y/O TONSILLECTOMY ADENOIDECTOMY Tyron Dillard MD [address] [place] [address] [facility] Status Reason Specialty Diagnoses / Procedures Referre d By Contact Referred To Contact Diagnoses Sore throat in the morning Morning headache Excessive daytime sleepiness Frequent nocturnal awakening Procedures ME SLEEP STUDY, UNATTENDED, SIMUL RECORD HR/O2 SAT/RESP FLOW/RESP EFF T [facility] [address] [place] [address] [facility] Status Reason Specialty Diagnoses / Procedures Referred By Contact Referred To Contact Closed Sleep Center Diagnoses Sore throat in the morning Morning headache Excessive daytime sleepiness Frequent nocturnal awakening Procedures Home Sleep Study ME SLEEP STUDY, UNATTENDED, SIMUL RECORD HR/O2 SAT/RESP FLOW/RESP EFF HST Ashlyn Helms APRN - SUPERINTENDENT SERVICE [address] [facility] [address] [place] [address] [facility] [address] [place] [address] Status Reason Specialty Diagnoses / Procedures Referre d By Contact Referred To Contact Closed Radiology Diagnoses Acute recurrent maxillary sinusitis Procedures HC CT FACIAL BONES W/O CONTRAST ME STEREOTACTIC COMP ASSIST PROC,CRANIAL,EXTRADURAL Tyron Dillard MD [address] [place] [address] [facility] [address] Scan [address] [place] [address] INFORMATION SOURCE (unrecogn ized section and content) DATE CREATED AUTHOR 01/25/2021 [facility] DATE CREATED AUTHOR AUTHOR'S ORGANIZ ATION 11/22/2021 [facility] DATE CREATED AUTHOR AUTHOR'S ORGANIZ ATION 04/11/2022 [facility] Care Teams (unrecognized sec tion and content) Equipment Service Associate Relationship Specialty Start Date End Date Ashlyn Helms, BOTTLE BLOWING MACHINE TENDER - SUPERINTENDENT SERVICE [address] [place] [address] PCP - General Nurse Practitioner Adult Health 05/16/20 FOR RECORDS PERTAINING TO PATIENTS WHO ARE OR HAVE BEEN ENROLLED IN A CHEMICAL DEPENDENCY/SUBSTANCEABUSE PROGRAM, SOME INFORMATION MAY BE OMITTED. This clinical summary was aggregated from multiple sources. Caution should be exercised in using it in the provision of clinical care. This summary normalizes information from multiple sources, and as a consequence, information in this document may materially change the coding, format and clinical context of patient data. In addition, data may be omitted in some cases. CLINICAL DECISIONS SHOULD BE BASED ON THE PRIMARY CLINICAL RECORDS. [employer] [facility]. provides no warranty or guarantee of the accuracy or completeness of information in this document.
--- NOTE | 2023-10-06 12:03 | PC.NURSE ---
Cheyanne, s.o. and 7 day old Melquiades arrive for follow up visit. All state doing well. Cheyanne states I am now just pumping and bottle feeding him instead of . Long discussion regarding pumping only, discussed schedule and given hand out for same. Reviewed double pumping and power pumping to ensure adequate supply to use breast milk only. Verbalized understanding. Assessment of Cheyanne WNL, and VVS. Pumping currently every 4-cora hours. Encouraged to increase #to 8X in 24 hours to establish supply. S.O. attentive to discussion and nods head in affirmation to info. Melquiades pink, warm and appropriately dressed for weather. Assessment WNL and VVS. noted to have dry skin peeling and cracking on feet, ankles and wrists. Mother using lotion and sponge bath with breast milk water really helps Parents report greater than 8 wets daily, and 8 yellow stools daily. Encouraged to offer 60 ml each feed every 3 hours to keep infant from feeding 25-70 ml every 30-60 minutes. Parents relieved could feed greater volume with space between feeds. Parents request info for care providers for tongue tie care. Given information on tongue ties, body work, stretching exercises and post procedure care. Verbalized understanding. No further concerns voiced at this time.
[2023-10-06 12:05] VITALS: BP 117/74; PULSE 83; RESP 18; TEMP 36.4; O2SAT 97
== END 2023-10-06 11:25 | disposition home or self-care (01) ==
LOC: FBCO 09:22
PROVIDERS: Visit Provider Obstetrics & Gynecology
DX: Z39.2 Encounter for routine postpartum follow-up (principal)